=== PATIENT | female | born 1960 | race Caucasian/White ===

== ENCOUNTER 2019-10-11 09:16 | Emergency (ER) | payer MEDICARE ==
[~2019-10-11] VITALS: Ht 165.1 cm; Wt 63.6 kg
[2019-10-11] MEDS ORDERED: azithromycin 250mg tablet PO ONE (10:00)
[2019-10-11] MEDS ORDERED: acetaminophen w/codeine (30MG) #3 tablet PO ONE (10:00)
[2019-10-11] MEDS ORDERED: normal saline 1000ml 1,000 ML IV ONE (10:00)
[2019-10-11] MEDS ORDERED: acetaminophen 325mg tablet PO ONE (10:05)
[2019-10-11] MEDS ORDERED: benzonatate 100mg capsule PO ONE (10:05)
--- NOTE | 2019-10-11 10:27 | NUR ---
PATIENT ONLY TOOK TWO [address] MARIANELA JAMES
[2019-10-11 10:30] LABS: BASOPHILS # (AUTO) 0.1 X10'3 (0-0.2); EOSINOPHILS # (AUTO) 0.1 X10'3 (0-0.9); EOSINOPHILS % (AUTO) 0.7 % (0-6); HEMATOCRIT 40.3 % (35.0-45.0); HEMOGLOBIN 13.7 g/dl (12.0-16.0); LYMPHOCYTES # (AUTO) 1.6 X10'3 (1.1-4.8); LYMPHOCYTES % (AUTO) 17.9 % (21-51); MEAN CORPUSCULAR HGB CONC 33.9 g/dL (33.0-36.5); MEAN CORPUSCULAR VOLUME 91.4 FL (78-98); MEAN PLATELET VOLUME 10.2 FL (7.4-10.4); MONOCYTES # (AUTO) 0.6 X10'3 (0-0.9); MONOCYTES % (AUTO) 7.2 % (2-12); NEUTROPHILS # (AUTO) 6.4 X10'3 (1.8-7.7); NEUTROPHILS % (AUTO) 73.2 % (42-75); PLATELET COUNT 184 X10'3 (140-440); RED BLOOD COUNT 4.41 X10'6 (4.20-5.60); RED CELL DISTRIBUTION WIDTH 13.8 % (11.5-14.5); WHITE BLOOD COUNT 8.7 X10'3 (4.5-11.0)
[2019-10-11 10:46] LABS: ALANINE AMINOTRANSFERASE 24 U/L (12-78); ALBUMIN 3.6 G/DL (3.4-5.0); ALBUMIN/GLOBULIN RATIO 0.9 (1.1-1.5); ALKALINE PHOSPHATASE 94 IU/L (46-116); ANION GAP 9 (8-16); ASPARTATE AMINO TRANSFERASE 22 U/L (10-37); BILIRUBIN,TOTAL 0.7 MG/DL (0.1-1.0); BLOOD UREA NITROGEN 12 MG/DL (7-18); BUN/CREATININE RATIO 20.3 (6.6-38.0); CHLORIDE 106 MMOL/L (99-107); CREATININE 0.59 MG/DL (0.40-0.90); GLUCOSE 89 MG/DL (70-104); POTASSIUM 3.1 MMOL/L (3.5-5.1); SODIUM 142 MMOL/L (135-145); TOTAL CARBON DIOXIDE 26.7 MMOL/L (24-32); TOTAL PROTEIN 7.7 G/DL (6.4-8.2); eGFR > 90 ML/MIN
[2019-10-11] MEDS ORDERED: potassium Cl 20 mEq SR tablet PO STA (12:22)
--- NOTE | 2019-10-11 12:23 | NUR ---
discussed plan of care with MD and K=3.1, no orders for nebs
[2019-10-11] MEDS ORDERED: AZIT-63 PO (12:27)
[2019-10-11 12:34] VITALS: BP 130/88
== END 2019-10-11 12:50 | disposition home or self-care (01) ==
LOC: ER 09:16
DX: J20.9 Acute bronchitis, unspecified (principal); I48.91 Unspecified atrial fibrillation; Z88.5 Allergy status to narcotic agent; Z88.6 Allergy status to analgesic agent; Z79.2 Long term (current) use of antibiotics
CPT/HCPCS: 36415; 71045; 80053; 85025; 87502; 87503; 99284; J7030

== ENCOUNTER 2019-11-20 13:28 | Emergency (ER) | payer MEDICARE, MEDICAID ==
[~2019-11-20] VITALS: Ht 165.1 cm; Wt 67.0 kg
[2019-11-20 14:40] LABS: BASOPHILS % (AUTO) 0.5 % (0-1); EOSINOPHILS % (AUTO) 0.7 % (0-6); HEMATOCRIT 38.5 % (35.0-45.0); HEMOGLOBIN 12.9 g/dl (12.0-16.0); LYMPHOCYTES # (AUTO) 1.6 X10'3 (1.1-4.8); LYMPHOCYTES % (AUTO) 29.9 % (21-51); MEAN CORPUSCULAR HGB CONC 33.5 g/dL (33.0-36.5); MEAN CORPUSCULAR VOLUME 92.6 FL (78-98); MEAN PLATELET VOLUME 9.8 FL (7.4-10.4); MONOCYTES # (AUTO) 0.3 X10'3 (0-0.9); MONOCYTES % (AUTO) 5.3 % (2-12); NEUTROPHILS # (AUTO) 3.4 X10'3 (1.8-7.7); NEUTROPHILS % (AUTO) 63.6 % (42-75); PLATELET COUNT 183 X10'3 (140-440); RED BLOOD COUNT 4.16 X10'6 (4.20-5.60); WHITE BLOOD COUNT 5.4 X10'3 (4.5-11.0)
[2019-11-20 15:06] LABS: ALANINE AMINOTRANSFERASE 36 U/L (12-78); ALBUMIN 3.9 G/DL (3.4-5.0); ALBUMIN/GLOBULIN RATIO 1.1 (1.1-1.5); ALKALINE PHOSPHATASE 93 IU/L (46-116); ANION GAP 9 (8-16); ASPARTATE AMINO TRANSFERASE 38 U/L (10-37); BILIRUBIN,TOTAL 0.6 MG/DL (0.1-1.0); BLOOD UREA NITROGEN 13 MG/DL (7-18); BUN/CREATININE RATIO 18.8 (6.6-38.0); CALCIUM 8.6 MG/DL (8.5-10.1); CHLORIDE 106 MMOL/L (99-107); CREATININE 0.69 MG/DL (0.40-0.90); GLUCOSE 80 MG/DL (70-104); POTASSIUM 3.4 MMOL/L (3.5-5.1); SODIUM 143 MMOL/L (135-145); TOTAL CARBON DIOXIDE 28.2 MMOL/L (24-32); TOTAL PROTEIN 7.4 G/DL (6.4-8.2); eGFR 87 ML/MIN
--- NOTE | 2019-11-20 15:09 | NUR ---
PT FEELS THE CHEST PAIN IS MORE ANXIETY. MOVED HERE ONE MONTH AGO ,STAYING IN A HOTEL LOOKING FOR A PLACE TO LIVE. PT ON DISAB ILITY. ALSO, DOESNT HAVE ANY DOCTORS HERE AND STRESSED ABOUT THAT.
[2019-11-20 16:26] VITALS: BP 118/58
--- NOTE | 2019-11-20 17:02 | NUR ---
PER ART ROBERTS, OK TO PROVIDED PT WATER SHE IS REQUESTING.
--- NOTE | 2019-11-20 18:36 | NUR ---
ASSISTED PRIMARY NURSE ROXANNA PERRY WITH PT'S DISCHARGE. PT REFUSING TO LEAVE. SHE STATES SHE DOESN'T KNOW WILL HAPPEN TO HER. DR LIM AND ART WONG MADE AWARE WELL ROXANNA BERNAL (CHARGE NURSE). OK WITH PT BEING DISCHARGED. SHE WANT'S TO BE SEEN BY MENTAL HEALTH. SHE INITIALLY CAME HERE FOR CHEST PAIN. PT GIVEN MULTIPLE PHONE NUMBERS AND RESOURCES FOR FOOD, COUNSELORS, MENTAL HEALTH PROVIDERS, AND PRIMARY CARE PROVIDERS. [email or web address] [facility] CALLED FOR PT.
== END 2019-11-20 18:41 | disposition home or self-care (01) ==
LOC: ER 13:29
DX: R07.89 Other chest pain (principal); I48.91 Unspecified atrial fibrillation; Z88.6 Allergy status to analgesic agent; Z88.5 Allergy status to narcotic agent
CPT/HCPCS: 36415; 71045; 80053; 84484; 85025; 93005; 99284